=== PATIENT | male | born 1945 | race Caucasian/White ===

== ENCOUNTER → 2018-04-09 | Day surgery (SDC) | payer MEDICARE ==
[2018-04-04 13:00] VITALS: BMI 30.9
[~2018-04-09] MED LIST: ALPRAZolam 0.25 MG TAB PO PRN; ALPRAZolam 0.5 MG TAB PO PRN; ASPIRIN 325 MG TAB PO STA; ASPIRIN 81 MG ONE; ATORVASTATIN 80 MG TAB PO STA; HEPARIN SODIUM 1,000 UN/ML (10ML VL) IV ONE; IOPAMIDOL-370 125ML BTL INJ ONE; LIDOCAINE 1% INJ 10MG/ML (20 ML MDV) SQ ONE; MIDAZOLAM 2 MG/2 ML VIAL IVP ONE; NITROGLYCERIN SL TABS 0.4 MG TAB SUBLINGUAL PRN; RX INFO: IV CONTRAST WAS GIVEN 1 EACH MISC MISCELLANE PRN; SODIUM CHLORIDE 0.9% 1,000 ML IV ONE; SODIUM CHLORIDE 0.9% 1,000 ML IV SCH; SODIUM CHLORIDE 0.9% 1,000 ML in EMPTY BAG 1 BAG IV ONE
[2018-04-09 11:43] VITALS: RESP 18; TEMP 98
[2018-04-09 11:53] LABS: Basophils % (A) 1 %; Eosinophils # (A) 0.2 k/uL (0-0.7); Eosinophils % (A) 4 %; HCT 42.4 % (39.0-53.0); HGB 14.3 gm/dL (13.0-17.5); Lymphocytes % (A) 34 %; MCH 33.3 pg (25.0-35.0); MCHC 33.8 g/dL (31.0-37.0); MCV 98.4 fL (80.0-100.0); Mean Platelet Volume 7.1; Monocytes # (A) 0.4 k/uL (0-1.0); Monocytes % (A) 6 %; Neutrophils # (A) 3.1 k/uL (1.3-7.7); Neutrophils % (A) 53 %; Platelet Count 265 k/uL (150-450); RBC 4.31 m/uL (4.30-5.90); RDW 12.6 % (11.5-15.5); WBC 5.7 k/uL (3.8-10.6)
[2018-04-09] MEDS: VERAPAMIL SYRINGE (5 MG/10 ML) INTRAARTER ONE ×2 (12:57→13:07)
--- NOTE | 2018-04-09 15:12 | LTR ---
DATE OF SERVICE: 04/09/2018 RE: Jim Zechariah Dear Dr. Haney: Mr. Zechariah Fernandez underwent a heart catheterization and that revealed intermediate disease involving the ostial of the first and second diagonal branches. I did recommend maximized medical treatment at this point. I want to thank you for allowing us to participate in his care and please do not hesitate to call if you have any question or concern. Sincerely, MD JAMEEL Rai / CHIRAG: [phone] /
--- NOTE | 2018-04-09 15:12 | CC ---
CARDIAC CATHETERIZATION REPORT DATE OF SERVICE: 04/09/2018. PERFORMING PHYSICIAN: Bunny Mims MD, Assistant Site Manager. PROCEDURE PERFORMED: 1. Selective right and left coronary angiogram. 2. Left heart catheterization. INDICATION: This is a pleasant 72-year-old gentleman with known diabetes, hypertension, and dyslipidemia, who was experiencing chest discomfort and underwent myocardial perfusion imaging stress test and that revealed anterior ischemia. Because of that, a heart catheterization was advised. APPROACH: Right radial artery. COMPLICATION: None. LEVEL OF SEDATION: Moderate with sedation length of 15 minutes. PROCEDURE DESCRIPTION: After obtaining an informed consent, the patient was brought to the cardiac bed laborer. The right radial artery was cannulated using micropuncture technique. Then I placed a 6-Swedish sheath in the right radial artery. Subsequently, I gave the patient 2 mg of verapamil IA and 10,000 units of heparin IV. Selective right and left coronary angiogram was performed using JR4 and JL3.5 catheters. Left heart catheterization was performed using 6-Swedish pigtail catheter. The procedure was completed without any complication. SELECTIVE CORONARY ANGIOGRAM: 1. The RCA is a large caliber vessel and it is a dominant vessel. It is angiographically normal. Distally bifurcates into PDA and PLV branches both are angiographically normal. 2. The left main is normal, it bifurcates into the circumflex and left anterior descending artery. 3. The circumflex is a large caliber vessel. It is a nondominant vessel. The proximal circumflex is normal. The mid circumflex is normal and gives rise into a large OM branch which appeared to be angiographically normal and the circumflex continued after that as a small-caliber vessel in the AV groove. 4. The LAD, the proximal LAD has mild disease only. The mid LAD appeared to be angiographically normal and gives rise into the first and second diagonal branches. The first diagonal branch appeared to have an ostial lesion in the range of 60% and the second diagonal branch appeared to have ostial lesion in the range of 70%. The mid LAD appeared to be normal and gives rise into the third diagonal branch which seems to be normal. HEMODYNAMICS: The left ventricular pressure was 12 mmHg and no significant gradient was seen across the aortic valve. CONCLUSION: 1. Intermediate to severe disease involving the ostial of first and second diagonal branches. 2. Maximize medical treatment. 3. Follow up with the patient. MMODL / IJN: [id number] /
[2018-04-09 18:38] VITALS: BP 124/62; PULSE 46
== END ==
LOC: CATHCVL 10:51
PROVIDERS: ATTEND Internal Medicine Interventional Cardiology
DX: I25.110 Atherosclerotic heart disease of native coronary artery with unstable angina pectoris (principal); R94.39 Abnormal result of other cardiovascular function study; E78.00 Pure hypercholesterolemia, unspecified; E78.5 Hyperlipidemia, unspecified; I10 Essential (primary) hypertension; R73.03 Prediabetes; R00.1 Bradycardia, unspecified; Z72.0 Tobacco use; Z79.82 Long term (current) use of aspirin; Z79.899 Other long term (current) drug therapy
CPT/HCPCS: 93458; 85025; C1894; J2250; J2001; J1644; Q9967

== ENCOUNTER 2020-10-22 12:49 | Inpatient (IN) | payer MEDICARE ==
[2020-10-22] MEDS ORDERED: ASPIRIN 81 MG PO STA (13:07)
[2020-10-22] MEDS ORDERED: NITROGLYCERIN OINT 1 INCH/GM PACKET TOPICAL STA (13:07)
[2020-10-22] MEDS ORDERED: HEPARIN SODIUM 1,000 UN/ML (10ML VL) IV ONE (13:07)
[2020-10-22] MEDS ORDERED: HEPARIN SODIUM 1,000 UN/ML (10ML VL) IV PRN (13:07)
--- NOTE | 2020-10-22 13:15 | ED ---
Chest Pain HPI - General Chief Complaint: Chest Pain Stated Complaint: Chest Pain Time Seen by Provider: 10/22/20 13:03 Source: patient, RN notes reviewed Mode of arrival: wheelchair Limitations: no limitations - History of Present Illness Initial Comments: This is a 75-year-old male prior history of heart disease he states he had the onset last evening of chest pain it was retrosternal. He states is 10/10 last evening but went away by itself he recurrence of it this morning with radiation to left arm and left arm numbness is dull currently 1-2/10 in severity. He takes nightly aspirin 81 mg he has not taken anything today thus far. No nausea no fevers chills or sweats at this time. He states it feels similar to his previous chest pains with heart disease MD Complaint: chest pain - Related Data Home Medications Medication Instructions Recorded Confirmed Aspirin EC [Ecotrin Low Dose] 81 mg PO HS 10/22/20 10/22/20 Cholecalciferol [Vitamin D3 (25 25 mcg PO DAILY 10/22/20 10/22/20 Mcg = 1000 Iu)] Multivitamins, Thera [Multivitamin 2 tab PO DAILY 10/22/20 10/22/20 (formulary)] Ubidecarenone [Co Q-10] 100 mg PO DAILY 10/22/20 10/22/20 Vitamin B Complex 1 cap PO DAILY 10/22/20 10/22/20 lisinopriL [Zestril] 2.5 mg PO HS 10/22/20 10/22/20 Allergies Allergy/AdvReac Type Severity Reaction Status Date / Time No Known Allergies Allergy Verified 10/22/20 14:34 Review of Systems ROS Statement: Those systems with pertinent positive or pertinent negative responses have been documented in the HPI. ROS Other: All systems not noted in ROS Statement are negative. EKG Findings - EKG Results: EKG: interpreted by RICKEY, sinus rhythm (EKG shows sinus bradycardia rate of 51 TX interval 178 QRS 84 QT since QTC 436/401 st-t wave changes seen) Past Medical History Past Medical History: Cancer, Hyperlipidemia, Hypertension Additional Past Medical History / Comment(s): Colon CA 2016 Additional Past Surgical History / Comment(s): colon cancer surgery General Exam - General Exam Comments Initial Comments: This is a well-developed well-nourished awake alert oriented 3 male Limitations: no limitations General appearance: alert, anxious Head exam: Present: atraumatic, normocephalic, normal inspection Eye exam: Present: normal appearance, PERRL, EOMI. Absent: scleral icterus, conjunctival injection, periorbital swelling ENT exam: Present: normal exam, mucous membranes moist Neck exam: Present: normal inspection, full ROM, other (No stridor JVD or bruits). Absent: tenderness, meningismus, lymphadenopathy Respiratory exam: Present: normal lung sounds bilaterally. Absent: respiratory distress, wheezes, rales, rhonchi, stridor Cardiovascular Exam: Present: regular rate, normal rhythm, normal heart sounds. Absent: systolic murmur, diastolic murmur, rubs, gallop, clicks GI/Abdominal exam: Present: soft, normal bowel sounds. Absent: distended, tenderness, guarding, rebound, rigid Extremities exam: Present: normal inspection, full ROM, normal capillary refill. Absent: tenderness, pedal edema, joint swelling, calf tenderness Back exam: Present: normal inspection Neurological exam: Present: alert, oriented X3, CN II-XII intact Psychiatric exam: Present: normal affect, normal mood Skin exam: Present: warm, dry, intact, normal color. Absent: rash Course Vital Signs 10/22/20 10/22/20 10/22/20 12:50 14:19 15:29 Temperature 98.1 F 98.1 F Pulse Rate 58 L 46 L 48 L Respiratory 18 19 18 Rate Blood Pressure 196/80 144/84 128/73 O2 Sat by Pulse 98 98 97 Oximetry - Reevaluation(s) Reevaluation #1: 10/22/20 15:56 Reevaluation patient reveals he has no further chest pain at this time. Chest Pain MDM - MDM Imaging reviewed no evidence of acute findings. Patient no further chest pain the presentation however is consistent with unstable angina. Patient will be admitted I did discuss the case with Dr. Harriscardiology will be consulted. Critical Care Time Critical Care Time: Yes Total Critical Care Time: 31 Critical Care Time: Critical care time 31 minutes includes initial presentation with history physical labs x-rays multiple re-evaluations the patient discussed with the patient regarding findings discussion with the admitting physician admission orders and documentation of the above Disposition Clinical Impression: Unstable angina pectoris Disposition: ADMITTED IP TO THIS HOSP Condition: Fair Referrals: Susan Haney MD [Primary Care Provider] - 1-2 days
[2020-10-22 13:35] LABS: Basophils % (A) 0 %; Eosinophils # (A) 0.3 k/uL (0-0.7); Eosinophils % (A) 5 %; HCT 43.3 % (39.0-53.0); HGB 14.6 gm/dL (13.0-17.5); Lymphocytes # (A) 1.9 k/uL (1.0-4.8); Lymphocytes % (A) 29 %; MCH 32.9 pg (25.0-35.0); MCHC 33.7 g/dL (31.0-37.0); MCV 97.8 fL (80.0-100.0); Mean Platelet Volume 7.6; Monocytes # (A) 0.6 k/uL (0-1.0); Monocytes % (A) 9 %; Neutrophils # (A) 3.5 k/uL (1.3-7.7); Neutrophils % (A) 54 %; Platelet Count 291 k/uL (150-450); RBC 4.43 m/uL (4.30-5.90); RDW 12.6 % (11.5-15.5); WBC 6.6 k/uL (3.8-10.6)
[2020-10-22 13:48] LABS: D-Dimer 0.42 mg/L FEU (<0.60); INR 0.9 (<1.2); Partial Thromboplastin Time 27.2 sec (22.0-30.0); Prothrombin Time 10.1 sec (9.0-12.0)
[2020-10-22 14:01] LABS: Albumin 4.4 g/dL (3.5-5.0); Calcium 9.5 mg/dL (8.4-10.2); Magnesium 2.1 mg/dL (1.6-2.3); Potassium 4.2 mmol/L (3.5-5.1); Total Bilirubin 0.3 mg/dL (0.2-1.3)
--- NOTE | 2020-10-22 14:44 | XR ---
EXAMINATION TYPE: XR chest 2V DATE OF EXAM: 10/22/2020 COMPARISON: NONE TECHNIQUE: PA and lateral views submitted. HISTORY: Chest pain FINDINGS: The lungs are clear and there is no pneumothorax, pleural effusion, or focal pneumonia. Heart size prominent. No overt failure. Chronic rib deformity seen. Biapical pleural thickening. No overt failur e. Hypertrophic and degenerative change of the spine. IMPRESSION: 1. No acute process.
[2020-10-22] MEDS ORDERED: HEPARIN SOD,PORK IN 0.45% NACL 25,000 UNIT in 0.45% NACL 1 250ML.BAG IV SCH (15:45)
[2020-10-22] MEDS ORDERED: NITROGLYCERIN SL TABS 0.4 MG TAB SUBLINGUAL PRN (15:59)
[2020-10-22] MEDS ORDERED: SODIUM CHLORIDE 0.9% 1,000 ML IV SCH (16:00)
[2020-10-23] MEDS ORDERED: CHOLECALCIFEROL 25 MCG (1000 IU) TABLET PO SCH (09:00)
[2020-10-23] MEDS ORDERED: NON FORMULARY DRUG (Ubidecarenone [Co Q-10] 100 MG Capsule) PO SCH (09:00)
[2020-10-23] MEDS ORDERED: NON FORMULARY DRUG (Vitamin B Complex [Vitamin B Complex] 1 EACH Capsule) PO SCH (09:00)
[2020-10-23] MEDS ORDERED: ASPIRIN 81 MG PO SCH (09:00)
[2020-10-23] MEDS ORDERED: MULTIVITAMINS, THERA 1 EACH TAB PO SCH (09:00)
[2020-10-23] MEDS ORDERED: ASPIRIN 325 MG TAB PO SCH (09:00)
--- NOTE | 2020-10-23 12:39 | P.CRDCN ---
History of Present Illness History of present illness: HISTORY OF PRESENTING ILLNESS This is a pleasant 75-year-old male past medical history significant for coronary artery disease with intermediate to severe disease involving the ostial first and second diagonal branch, hypertension, dyslipidemia and history of colon cancer in remission since 2016. He follows in the office with Dr. Mims. We have been asked to see in consultation for chest pain. He states he has had 2 episodes of chest discomfort in the previous 2 days described as a squeezing ripping sensation in the left precordial region. He states it feels like someone is reaching inside and trying to rip his heart out of his chest. This is associated with feeling mildly lightheaded. There is no radiation to the back, arm, neck or jaw. He denies associated shortness of breath, palpitations, nausea, vomiting or diaphoresis. The pain subsided on its own. It occurred at rest with no particular exacerbating factor. EKG on arrival revealed sinus bradycardia heart rate of [address] or T wave abnormalities noted. Chest x-ray is negative for an acute cardiopulmonary process. Laboratory data reviewed, troponin negative 3, CBC unremarkable, d- dimer 0.42, sodium 138, potassium 4.2, creatinine 0.98, magnesium 2.1 and NT proBNP 72 current daily cardiac medications include aspirin 81 mg daily and lisinopril 2.5 mg at bedtime. Telemetry tracings reveal sinus mechanism with evidence of sinus bradycardia while sleeping. Most recent cardiac testing performed in the office in 2018 is a Lexiscan stress test revealing reversibility in the inferior wall of the LV prompting cardiac catheterization that revealed intermediate to severe disease involving the ostial first and second diagonal branch. Maximum medical therapy was recommended. Most recent echocardiogram obtained 2018 revealed preserved LV systolic function with ejection fraction 60%, mild mitral regurgitation, mildly calcified aortic valve with mild aortic regurgitation and mild tricuspid regurgitation. REVIEW OF SYSTEMS At the time of my exam: CONSTITUTIONAL: Denies fever or chills. CARDIOVASCULAR: Denies chest pain, shortness of breath, orthopnea, PND or palpitations. RESPIRATORY: Denies cough. GASTROINTESTINAL: Denies abdominal pain, diarrhea, constipation, nausea or vomit ing. MUSCULOSKELETAL: Denies myalgias. NEUROLOGIC: Denies numbness, tingling, headacbe or weakness. ENDOCRINE: Denies fatigue, weight change, polydipsia or polyurina. GENITOURINARY: Denies burning, hematuria or urgency with micturation. HEMATOLOGIC: Denies history of anemia or bleeding. PHYSICAL EXAMINATION Blood pressure 122/64 heart rate 52 afebrile and maintaining oxygen saturation on nasal cannula. CONSTITUTIONAL: No apparent distress. HEENT: Head is normocephalic. Pupils are equal, round. Sclerae anicteric. Mucous membranes of the mouth are moist. No JVD. No carotid bruit. CHEST EXAMINATION: Lungs are clear to auscultation. No chest wall tenderness is noted on palpation or with deep breathing. HEART EXAMINATION: Regular rate and rhythm. S1, S2 heard. Systolic ejection murmur at the base, no gallops or rub. ABDOMEN: Soft, nontender. Positive bowel sounds. EXTREMITIES: 2+ peripheral pulses, no lower extremity edema and no calf tenderness. NEUROLOGIC EXAMINATION: Patient is awake, alert and oriented x3. ASSESSMENT Chest pain Coronary artery disease Hypertension Dyslipidemia History of colon cancer PLAN An acute coronary event has been ruled out. Obtain 2D echocardiogram and doppler study to assess cardiac structure and function. Obtain stress echocardiogram to assess for stress-induced cardiac ischemia. Thank you kindly for this consultation. Nurse Practitioner note has been reviewed, I agree with a documented findings and plan of care. Patient was seen and examined. Past Medical History Past Medical History: Cancer, Hyperlipidemia, Hypertension Additional Past Medical History / Comment(s): Colon CA 2016 History of Any Multi-Drug Resistant Organisms: None Reported Additional Past Surgical History / Comment(s): colon cancer surgery Past Anesthesia/Blood Transfusion Reactions: No Reported Reaction Past Psychological History: No Psychological Hx Reported Smoking Status: Former smoker Medications and Allergies Home Medications Medication Instructions Recorded Confirmed Type Aspirin EC [Ecotrin Low Dose] 81 mg PO HS 10/22/20 10/22/20 History Cholecalciferol [Vitamin D3 (25 25 mcg PO DAILY 10/22/20 10/22/20 History Mcg = 1000 Iu)] Multivitamins, Thera [Multivitamin 2 tab PO DAILY 10/22/20 10/22/20 History (formulary)] Ubidecarenone [Co Q-10] 100 mg PO DAILY 10/22/20 10/22/20 History Vitamin B Complex 1 cap PO DAILY 10/22/20 10/22/20 History lisinopriL [Zestril] 2.5 mg PO HS 10/22/20 10/22/20 History Allergies Allergy/AdvReac Type Severity Reaction Status Date / Time No Known Allergies Allergy Verified 10/22/20 14:34 Physical Exam Vitals: Vital Signs Temp Pulse Pulse Pulse Resp BP BP 10/23/20 07:00 97.8 F 52 L 19 122/64 10/23/20 02:00 47 L 10/23/20 01:37 98.2 F 47 L 18 122/69 10/22/20 19:27 97.9 F 43 L 20 139/73 10/22/20 18:23 97.8 F 41 L 16 143/70 10/22/20 15:29 98.1 F 48 L 18 128/73 10/22/20 14:19 46 L 19 144/84 10/22/20 12:50 98.1 F 58 L 18 196/80 Pulse Ox 10/23/20 07:00 97 10/23/20 02:00 10/23/20 01:37 94 L 10/22/20 19:27 94 L 10/22/20 18:23 98 10/22/20 15:29 97 10/22/20 14:19 98 10/22/20 12:50 98 Intake and Output 10/22/20 10/23/20 10/23/20 22:59 06:59 14:59 Intake Total 81.667 103.135 Balance 81.667 103.135 Intake: Intake, IV Titration 81.667 103.135 Amount Heparin Sod,Pork in 0.45% 81.667 103.135 NaCl 25,000 unit In 0.45 % NaCl 1 250ml.bag @ 10. 021 UNITS/KG/HR 10 mls/hr IV .Q24H [facility] Rx#: [id number] Other: Voiding Method Toilet # Voids 2 3 Weight 99.79 kg Results 10/22/20 13:16 10/22/20 13:16 Cardiac Enzymes 10/22/20 10/22/20 10/22/20 Range/Units 13:16 13:16 16:59 AST 28 (17-59) U/L Troponin I <0.012 <0.012 (0.000-0.034) ng/mL 10/22/20 Range/Units 20:10 AST (17-59) U/L Troponin I 0.013 (0.000-0.034) ng/mL Coagulation 0610/22/20 10/23/20 Range/Units 13:16 22:17 06:54 PT 10.1 (9.0-12.0) sec APTT 27.2 26.2 38.3 H (22.0-30.0) sec CBC 10/22/20 Range/Units 13:16 WBC 6.6 (3.8-10.6) k/uL RBC 4.43 (4.30-5.90) m/uL Hgb 14.6 (13.0-17.5) gm/dL Hct 43.3 (39.0-53.0) % Plt Count 291 (150-450) k/uL Comprehensive Metabolic Panel 10/22/20 Range/Units 13:16 Sodium 138 (137-145) mmol/L Potassium 4.2 (3.5-5.1) mmol/L Chloride 106 (98-107) mmol/L Carbon Dioxide 23 (22-30) mmol/L BUN 19 (9-20) mg/dL Creatinine 0.98 (0.66-1.25) mg/dL Glucose 93 (74-99) mg/dL Calcium 9.5 (8.4-10.2) mg/dL AST 28 (17-59) U/L ALT 23 (4-49) U/L Alkaline Phosphatase 79 (38-126) U/L Total Protein 7.0 (6.3-8.2) g/dL Albumin 4.4 (3.5-5.0) g/dL Current Medications Generic Name Dose Route Start Last Admin Trade Name Freq PRN Reason Stop Dose Admin Aspirin 325 mg 10/23/20 09:00 Aspirin 325 Mg Tab PO DAILY [facility] Atorvastatin Calcium 40 mg 10/23/20 21:00 Atorvastatin 40 Mg Tab PO HS [facility] Cholecalciferol 25 mcg 10/23/20 09:00 Cholecalciferol 25 Mcg (1000 Iu) Tablet PO DAILY [facility] Heparin Sodium (Porcine) 0 unit 10/22/20 13:07 10/22/20 23:48 Heparin Sodium 1,000 Un/Ml (10ml Vl) IV 4,000 unit Q6HR PRN Administration Low PTT Protocol Heparin Sodium/Sodium Chloride 250 mls @ 10 mls/hr 10/22/20 15:45 10/23/20 07:54 25,000 unit/ Sodium Chloride IV 15 units/kg/hr .Q24H [facility] 14.969 mls/hr Titration Protocol 10.021 UNITS/KG/HR Sodium Chloride 1,000 mls @ 20 mls/hr 10/22/20 16:00 10/22/20 18:28 Saline 0.9% IV 20 mls/hr .Q24H [facility] Administration Lisinopril 2.5 mg 10/22/20 21:00 10/22/20 21:08 Lisinopril 2.5 Mg Tab PO 2.5 mg HS [facility]IE Administration Multivitamins 1 each 10/23/20 09:00 Multivitamins, Thera 1 Each Tab PO DAILY [facility] Nitroglycerin 0.4 mg 10/22/20 15:59 Nitroglycerin Sl Tabs 0.4 Mg Tab SUBLINGUAL Q5M PRN Chest Pain Non-Formulary Medication 1 cap 10/23/20 09:00 Vitamin B Complex [Vitamin B Complex] PO DAILY [facility] Non-Formulary Medication 100 mg 10/23/20 09:00 Ubidecarenone [Co Q-10] PO DAILY [facility] Intake and Output 10/22/20 10/23/20 10/23/20 22:59 06:59 14:59 Intake Total 81.667 103.135 Balance 81.667 103.135 Intake: Intake, IV Titration 81.667 103.135 Amount Heparin Sod,Pork in 0.45% 81.667 103.135 NaCl 25,000 unit In 0.45 % NaCl 1 250ml.bag @ 10. 021 UNITS/KG/HR 10 mls/hr IV .Q24H [facility] Rx#: [id number] Other: Voiding Method Toilet # Voids 2 3 Weight 99.79 kg 10/22/20 13:16 10/22/20 13:16
[2020-10-23 13:29] LABS: Chol/HDL Ratio 5.95; LDL Cholesterol,Calculated 143.2 mg/dL (0.0-131.0); VLDL Calculation 39.8 mg/dL (5.00-40.00)
--- NOTE | 2020-10-23 14:00 | ECHOF ---
Referral Reason:cp MEASUREMENTS -------- HEIGHT: 180.3 cm WEIGHT: 99.8 kg BP: 122/64 RVIDd: 3.4 cm (< 3.3) IVSd: 1.2 cm (0.6 - 1.1) LVIDd: 4.1 cm (3.9 - 5.3) LVPWd: 1.1 cm (0.6 - 1.1) IVSs: 1.8 cm LVIDs: 3.4 cm LVPWs: 1.6 cm LA Diam: 3.6 cm (2.7 - 3.8) LAESV Index (A-L): 22.04 ml/m Ao Diam: 3.8 cm (2.0 - 3.7) AV Cusp: 2.5 cm (1.5 - 2.6) MV EXCURSION: 16.659 mm (> 18.000) MV EF SLOPE: 47 mm/s (70 - 150) EPSS: 0.4 cm MV E Chavo: 0.67 m/s MV DecT: 331 ms MV A Chavo: 0.93 m/s MV E/A Ratio: 0.73 AV maxP.52 mmHg AV meanP.57 mmHg RAP: 5.00 mmHg RVSP: 26.68 mmHg FINDINGS -------- Sinus rhythm. This was a technically good study. The left ventricular size is normal. There is borderline concentric left ventricular hypertrophy. Overall left ventricular systolic function is normal with, an EF between 60 - 65 %. The right ventricle is mildly enlarged. Normal LA size by volume 22+/-6 ml/m2. The right atrium is normal in size. Interatrial and interventricular septum intact. There is mild aortic valve sclerosis. Peak/mean gradient across the Aortic Valve is 14.52mmHg / 6.5 7mmHg. There is trace to mild mitral regurgitation. Mild tricuspid regurgitation present. Right ventricular systolic pressure is normal at < 35 mmHg. There is no pulmonic regurgitation present. The aortic root is dilated measuring 3.8cm. Normal inferior vena cava with normal inspiratory collapse consistent with estimated right atrial pre ssure of 5 mmHg. There is no pericardial effusion. CONCLUSIONS -------- 1. The left ventricular size is normal. 2. There is borderline concentric left ventricular hypertrophy. 3. Overall left ventricular systolic function is normal with, an EF between 60 - 65 %. 4. The right ventricle is mildly enlarged. 5. Interatrial and interventricular septum intact. 6. There is mild aortic valve sclerosis. 7. Peak/mean gradient across the Aortic Valve is 14.52mmHg / 6.57mmHg. 8. There is trace to mild mitral regurgitation. 9. Mild tricuspid regurgitation present. 10. The aortic root is dilated measuring 3.8cm. 11. There is no pericardial effusion. ADMINISTRATIVE MANAGER: Amaya Adames RDCS
[2020-10-23 14:55] VITALS: BP 127/72; PULSE 79; RESP 17; TEMP 98.3
--- NOTE | 2020-10-23 17:03 | ECHOS ---
STRESS ECHOCARDIOGRAM LUMASON: N/A Vial INDICATIONS: Chest pain. MEDICATIONS: BASELINE HEART RATE: 81 BASELINE BLOOD PRESSURE: 152/63 MAXIMUM HEART RATE: 129 MAXIMUM BLOOD PRESSURE: 241/97 85% MPHR: 145 100% MPHR: 123 METS: 4.7 MAXIMUM STAGE REACHED: II TOTAL EXERCISE TIME: 5:28 CLINICAL INFORMATION: Baseline EKG shows sinus rhythm, normal axis, normal intervals. Patient exercised on Corey protocol for a total of 5 1/2 minutes achieving 7 METS, 90% of predicted maximal heart rate without chest pain or diagnostic ST-segment depression. Baseline echo shows normal left ventricular size, wall motion and systolic function. Postexercise there is normal hyperdynamic response of all segments of myocardium noted. CONCLUSION: 1. Limited exercise tolerance. 2. Negative stress test by EKG criteria. 3. Negative stress echo. MMODL / IJN: [id number] /
[2020-10-23] MEDS ORDERED: ATORVASTATIN 40 MG TAB PO SCH (21:00)
--- NOTE | 2020-11-08 23:28 | P.HPIM ---
History of Present Illness H&P Date: 10/23/20 Chief Complaint: chest pain Tee Fernandez is a 75-year-old M with PMH of CAD, hypertension, HLD, colon cancer in remission who presented to the ED with chest pain. He complains of two episodes of squeezing pain and pressure. He states it feels like someone is reaching inside and trying to rip his heart out of his chest. He states this lasted a few minutes and subsided. Denies any associate with activity. No radiation. On presentation vitals stable, EKG with sinus bradycardia, labs reviewed and wnl, troponin negative.. Review of Systems All systems: negative Constitutional: Denies chills, Denies fever Eyes: denies blurred vision, denies pain Ears, nose, mouth and throat: Denies headache, Denies sore throat Cardiovascular: Reports chest pain, Denies shortness of breath Respiratory: Denies cough Gastrointestinal: Denies abdominal pain, Denies diarrhea, Denies nausea, Denies vomiting Musculoskeletal: Denies myalgias Integumentary: Denies pruritus, Denies rash Neurological: Denies numbness, Denies weakness Psychiatric: Denies anxiety, Denies depression Endocrine: Denies fatigue, Denies weight change Past Medical History Past Medical History: Cancer, Hyperlipidemia, Hypertension Additional Past Medical History / Comment(s): Colon CA 2016 History of Any Multi-Drug Resistant Organisms: None Reported Past Surgical History: Bowel Resection, Cholecystectomy Additional Past Surgical History / Comment(s): colon cancer surgery Past Anesthesia/Blood Transfusion Reactions: No Reported Reaction Past Psychological History: No Psychological Hx Reported Smoking Status: Former smoker - Past Family History Mother Family Medical History: No Reported History Medications and Allergies Home Medications Medication Instructions Recorded Confirmed Type Alpha Lipoic Acid 600 mg PO DAILY 04/04/18 04/09/18 History Ascorbic Acid [Vitamin C] 500 mg PO DAILY 04/04/18 04/09/18 History Cholecalciferol (Vitamin D3) 2,000 unit PO DAILY 04/04/18 04/09/18 History [Vitamin D3] Multivitamin [Men's Multi-Vitamin] 1 each PO DAILY 04/04/18 04/09/18 History Pollinosn 1 tab PO DAILY 04/04/18 04/09/18 History Red Yeast Rice 600 mg PO DAILY 04/04/18 04/09/18 History Ubidecarenone [Co Q-10] 200 mg PO DAILY 04/04/18 04/09/18 History Vitamin B Complex 1 each PO DAILY 04/04/18 04/09/18 History lisinopriL [Zestril] 2.5 mg PO HS 04/04/18 04/09/18 History Aspirin EC [Ecotrin Low Dose] 81 mg PO HS 10/22/20 10/22/20 History Cholecalciferol [Vitamin D3 (25 25 mcg PO DAILY 10/22/20 10/22/20 History Mcg = 1000 Iu)] Multivitamins, Thera [Multivitamin 2 tab PO DAILY 10/22/20 10/22/20 History (formulary)] Ubidecarenone [Co Q-10] 100 mg PO DAILY 10/22/20 10/22/20 History Vitamin B Complex 1 cap PO DAILY 10/22/20 10/22/20 History lisinopriL [Zestril] 2.5 mg PO HS 10/22/20 10/22/20 History Atorvastatin [Lipitor] 40 mg PO HS #30 tab 10/23/20 Rx Allergies Allergy/AdvReac Type Severity Reaction Status Date / Time No Known Allergies Allergy Verified 10/26/20 11:42 Physical Exam General: well nourished, well developed, NAD. Vitals reviewed Eyes: PERRL, EOMI, conjunctiva normal HENT: normocephalic, mucus membranes moist Neck: supple, no JVD Lungs: normal respiratory effort, no wheezes or rales CV: Regular rate and rhythm, no murmur. Peripheral pulses 2+ Abdomen: soft, nondistended, no organomegaly Lymph: no cervical or axillary LAD Skin: warm and dry. Neuro: A&Ox3, normal mood and affect Results CBC & Chem 7: 10/22/20 13:16 10/22/20 13:16 Thrombosis Risk Factor Assmnt - Choose All That Apply Any of the Below Risk Factors Present?: No Each Risk Factor Represents 3 Points: Age 75 years or older Other congenital or acquired thrombophilia - If yes, enter type in comment: No Thrombosis Risk Factor Assessment Total Risk Factor Score: 3 Thrombosis Risk Factor Assessment Level: Moderate Risk Assessment and Plan Plan: Chest pain. ACS ruled out. suspect costochondritis. Cardiology consulted for further evaluations Continue home antihypertensives
--- NOTE | 2020-11-08 23:29 | P.DS ---
Providers Date of admission: 10/23/20 14:24 Expected date of discharge: 10/23/20 Attending physician: Gerard Fox MD Consults: 10/22/20 15:59 Consult Physician Urgent Consulting Provider: Lalit Solis Consult Reason/Comments: Unstable angina, chest pain Do you want consulting provider notified?: Yes Primary care physician: [facility] Course: Tee Fernandez is a 75-year-old M with PMH of CAD, hypertension, HLD, colon cancer in remission who presented to the ED with chest pain. He complains of two episodes of squeezing pain and pressure. He states it feels like someone is reaching inside and trying to rip his heart out of his chest. He states this lasted a few minutes and subsided. Denies any associate with activity. No radiation. On presentation vitals stable, EKG with sinus bradycardia, labs reviewed and wnl, troponin negative. Pt evaluated by cardiology, stress echo performed and negative. Pt discharged in stable condition. Patient Condition at Discharge: Fair Plan - Discharge Summary Discharge Rx Participant: No New Discharge Prescriptions: New Atorvastatin [Lipitor] 40 mg PO HS #30 tab Continue lisinopriL [Zestril] 2.5 mg PO HS Multivitamins, Thera [Multivitamin (formulary)] 2 tab PO DAILY Cholecalciferol [Vitamin D3 (25 Mcg = 1000 Iu)] 25 mcg PO DAILY Ubidecarenone [Co Q-10] 100 mg PO DAILY Vitamin B Complex 1 cap PO DAILY Aspirin EC [Ecotrin Low Dose] 81 mg PO HS No Action lisinopriL [Zestril] 2.5 mg PO HS Red Yeast Rice 600 mg PO DAILY Vitamin B Complex 1 each PO DAILY Ubidecarenone [Co Q-10] 200 mg PO DAILY Cholecalciferol (Vitamin D3) [Vitamin D3] 2,000 unit PO DAILY Multivitamin [Men's Multi-Vitamin] 1 each PO DAILY Ascorbic Acid [Vitamin C] 500 mg PO DAILY Pollinosn 1 tab PO DAILY Alpha Lipoic Acid 600 mg PO DAILY Discharge Medication List Alpha Lipoic Acid 600 mg PO DAILY 04/04/18 [History] Ascorbic Acid [Vitamin C] 500 mg PO DAILY 04/04/18 [History] Cholecalciferol (Vitamin D3) [Vitamin D3] 2,000 unit PO DAILY 04/04/18 [History] Multivitamin [Men's Multi-Vitamin] 1 each PO DAILY 04/04/18 [History] Pollinosn 1 tab PO DAILY 04/04/18 [History] Red Yeast Rice 600 mg PO DAILY 04/04/18 [History] Ubidecarenone [Co Q-10] 200 mg PO DAILY 04/04/18 [History] Vitamin B Complex 1 each PO DAILY 04/04/18 [History] lisinopriL [Zestril] 2.5 mg PO HS 04/04/18 [History] Aspirin EC [Ecotrin Low Dose] 81 mg PO HS 10/22/20 [History] Cholecalciferol [Vitamin D3 (25 Mcg = 1000 Iu)] 25 mcg PO DAILY 10/22/20 [History] Multivitamins, Thera [Multivitamin (formulary)] 2 tab PO DAILY 10/22/20 [History] Ubidecarenone [Co Q-10] 100 mg PO DAILY 10/22/20 [History] Vitamin B Complex 1 cap PO DAILY 10/22/20 [History] lisinopriL [Zestril] 2.5 mg PO HS 10/22/20 [History] Atorvastatin [Lipitor] 40 mg PO HS #30 tab 10/23/20 [Rx] Follow up Appointment(s)/Referral(s): Bunny Mims MD [STAFF PHYSICIAN] - 11/09/20 4:30 pm ([address] office) Susan Haney MD [Primary Care Provider] - 3 Days (Message left for office to call with appointment) Patient Instructions/Handouts: Chest Pain (DC), Heart Healthy Diet (DC) Discharge Disposition: HOME SELF-CARE
== END 2020-10-23 15:10 | disposition home or self-care (01) | DRG 303 ==
LOC: EC 12:49 → 6NMEDSUR 15:59 → MERGE 10-23 14:24 → OBSVTOIN 10-23 14:24
PROVIDERS: ADMIT Family Medicine; ATTEND Family Medicine
DX: I25.110 Atherosclerotic heart disease of native coronary artery with unstable angina pectoris (principal); E78.5 Hyperlipidemia, unspecified; I10 Essential (primary) hypertension; Z87.891 Personal history of nicotine dependence; I35.8 Other nonrheumatic aortic valve disorders; Z79.82 Long term (current) use of aspirin; Z79.899 Other long term (current) drug therapy; Z85.038 Personal history of other malignant neoplasm of large intestine; Z90.49 Acquired absence of other specified parts of digestive tract; Z20.822 Contact with and (suspected) exposure to COVID-19
CPT/HCPCS: 36415; 71046; 80053; 80061; 82550; 83690; 83735; 83880; 84484; 85025; 85379; 85610; 85730; 87635; 93005; 93306; 93351; 96374; 99291